=== PATIENT | male | born 1995 | race Caucasian/White ===

== ENCOUNTER 2017-11-11 13:03 | Emergency (ER) | payer BC, OTHER ==
[~2017-11-11] VITALS: Ht 177.8 cm; Wt 77.1 kg
[2017-11-11] MEDS ORDERED: ACETAMINOPHEN 500 MG TAB (TYLENOL) PO PRN (13:45)
--- NOTE | 2017-11-11 13:56 | ED Headache ---
General Chief Complaint: Head/Cervical Problems Stated Complaint: HEADACHE--HX OF BRAIN TUMOR PER PT Nursing Triage Note: pt reports freire for months. pt reports light makes the pain worse. pt also reports hx of beign brain tumor/cyst. Nursing Sepsis Screen: No Definite Risk Source: patient, other Exam Limitations: no limitations History of Present Illness Date Seen by Provider: Nov 11, 2017 Time Seen by Provider: 13:42 Initial Comments Patient presents to ER by private conveyance with a chief complaint of headache that is in bilateral parietal region constant, pressure about a 6 out of 10. 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 He did not have any biopsy or surgery of this and was told that this would not explain his headaches. He has not seen a headache specialist or neurologist since then. He is followed by Dr. Han in [place], [place] but he has not seen a doctor in over a year. He has typically used Tylenol, Excedrin and other NSAIDs without much relief of his headache so he has not use any of these pain meds for over a week now. He feels last weekend he was having some cough, congestion, chills and subjective fevers and his headache is gotten worse and is why he came in today. He is having no nausea, vomiting, documented fever. 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 Camacho and [place], [place] over a year ago. He thinks that the tumor on the side of his episcopalian is coming back. It is not painful and is recurring over a matter of months. Allergies and Home Medications Allergies Coded Allergies: No Known Drug Allergies (Unverified , 12/29/09) Home Medications No Active Prescriptions or Reported Meds Constitutional: chills, diaphoresis, fever, malaise Eyes: Denies Blindness, Denies Blurred Vision, Denies Pain, Photophobia Ears, Nose, Mouth, Throat: denies ear pain, denies ear discharge (ears feeling under water) Respiratory: cough, No phlegm, No short of breath, No wheezing Cardiovascular: No chest pain, No edema Gastrointestinal: No abdominal pain, No constipation, No diarrhea, No nausea, No vomiting Genitourinary: No discharge, No dysuria, No incontinence Musculoskeletal: No back pain, No joint pain Skin: No pruritus, No rash Psychiatric/Neurological: Headache, Denies Numbness, Denies Paresthesia Past Akmkqui-Asgwzz-Ndneqi Hx Patient Social History Alcohol Use: Occasionally Uses Recreational Drug Use: No Smoking Status: Never a Smoker Recent Foreign Travel: No Contact w/Someone Who Travel: No Recent Infectious Disease Expo: No Recent Hopitalizations: No Physical Abuse: No Sexual Abuse: No Mistreated: No Fear: No Seasonal Allergies Seasonal Allergies: No Surgeries History of Surgeries: Yes (tumor removed of l episcopalian) Respiratory History of Respiratory Disorde: No Cardiovascular History of Cardiac Disorders: No Neurological History of Neurological Disord: Yes (per pt hx of beign brain tumor) Genitourinary History of Genitourinary Disor: No Gastrointestinal History of Gastrointestinal Di: No Musculoskeletal History of Musculoskeletal Dis: No Endocrine History of Endocrine Disorders: No HEENT History of HEENT Disorders: No Cancer History of Cancer: No Psychosocial History of Psychiatric Problem: No Suicide Risk Score: 0 Integumentary History of Skin or Integumenta: No Blood Transfusions History of Blood Disorders: No Physical Exam Vital Signs Vital Sign - Last 12Hours 11/11/17 13:31 Temp 98.2 Pulse 80 Resp 18 B/P (MAP) 134/93 (107) Pulse Ox 97 Capillary Refill : Less Than 3 Seconds General Appearance: WD/WN, no apparent distress HEENT: PERRL/EOMI, normal ENT inspection, pharynx normal, TM abnormal (L) ( mild effusion and retraction without injection or erythema), other (small soft mobile nontender regular mass over the episcopalian where his eyeglasses frame rests with previous surgical scar seen.) Neck: non-tender, full range of motion, supple, normal inspection Cardiovascular: normal peripheral pulses, regular rate, rhythm, no edema Respiratory: chest non-tender, lungs clear, normal breath sounds Gastrointestinal: normal bowel sounds, non tender, soft Psychiatric: alert, oriented x 3 Crainal Nerves: normal hearing, normal speech, PERRL Coordination/Gait: normal finger to nose, normal gait, negative Romberg's sign Motor/Sensory: no motor deficit, no sensory deficit, no pronator drift Reflexes: 2+ Bicep (R), 2+ Bicep (L), 3+ Knee (R), 3+ Knee (L) Skin: normal color, warm/dry Lymphatic: no adenopathy (anterior or posterior cervical chains or postauricular) Progress/Results/Core Measures Results/Orders Micro Results Microbiology 11/11/17 Influenza Types A,B Antigen (SARAH) - Final, Complete My Orders Orders - BALJIT SAUCEDO Acetaminophen Tablet (Tylenol Tablet) (11/11/17 13:45) Influenza A And B Antigens (11/11/17 13:46) Ketorolac Injection (Toradol Injection) (11/11/17 14:00) Medications Given in ED Current Medications Medications Dose Ordered Sig/Geovanna Route Start Time Stop Time Status Last Admin Dose Admin Acetaminophen 1,000 mg ONCE PRN PO 11/11/17 13:45 11/11/17 14:03 DC 11/11/17 14:03 1,000 MG Ketorolac Tromethamine 30 mg ONCE ONCE IM 11/11/17 14:00 11/11/17 14:01 DC 11/11/17 14:03 30 MG Vital Signs/I&O Vital Sign - Last 12Hours 11/11/17 13:31 Temp 98.2 Pulse 80 Resp 18 B/P (MAP) 134/93 (107) Pulse Ox 97 Blood Pressure Mean: 107 Progress Note : Time: 13:54 Progress Note 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 Han will have records of what was done in the past and may possibly need a outpatient ultrasound if it is concerning and may also need removed. I have advised him not to put this off for more than 2-4 weeks. His headache does not appear to be migrainous and may be related to his otitis media effusion. We'll recommend NSAID treatment as well as Tylenol, fluids and Flonase. If his headaches persist she should follow-up with his primary care physician for referral to neurology or headache specialist. Departure Impression Impression: Primary Impression: Left otitis media with effusion Additional Impressions: Headache Qualified Codes: R51 - Headache Lipoma Qualified Codes: D17.0 - Benign lipomatous neoplasm of skin and subcutaneous tissue of head, face and neck Disposition: 01 HOME, SELF-CARE Condition: Stable Departure-Patient Inst. Decision time for Depature: 14:13 Referrals: KARON MCLEAN MD (PCP/Family) Primary Care Physician Patient Instructions: Headache, Adult (DC) Add. Discharge Instructions: Drink plenty of fluids and use Tylenol 1000 mg followed by Motrin 800 mg every 8 hours as needed. Follow up with your primary care physician for headache management. 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 Is also reasonable use an antiallergy medicine such as Zyrtec or Claritin one tablet daily for the next 2 weeks. Plan to follow up with your primary care physician or the surgeon who took the tumor off the side of your head to follow up this recurrence. All discharge instructions reviewed with patient and/or family. Voiced understanding. Scripts No Active Prescriptions or Reported Meds BALJIT SAUCEDO Nov 11, 2017 13:55
[2017-11-11] MEDS ORDERED: KETOROLAC 30 MG/ML VIAL IM ONE (14:00)
[2017-11-11 14:30] VITALS: BP 123/87
--- OUTSIDE RECORDS SUMMARY | 2017-11-15 04:53 | XMS REPORT ---
Author [facility] Medical Staff Organization [facility] Address [address] [place] [id number] Phone [phone] Care Team Providers Care Control Room Tender Name Role Phone KARON MCLEAN MD PP [phone] Summary purpose TRANSITION OF CARE AUTO GENERATION Chief Complaint and Reason for Visit No authorized Reason for Visit (Admitting Diagnosis) is available for this visit. Problem list No authorized problems tracked for continuity of care are available for this visit. Encounters No authorized problems tracked for encounter diagnoses are available for this visit. Medications No medications recorded for this patient visit Allergies, adverse reactions, alerts Allergen Category Ingredient Status Reaction Severity Onset No known drug allergies No known drug allergies No known drug allergies Confirmed or Verified Immunizations No immunizations recorded for this patient visit Relevant diagnostic tests and/or laboratory data No authorized results are available for this patient visit History of procedures No procedures recorded for this patient visit. Functional status No functional or cognitive status observations are available for this visit. Vital signs No authorized vital signs are available for this visit. Social history No Social History or smoking status observations were recorded for this visit. ( Unknown if ever smoked.) Treatment Plan No treatment plan text is available for this visit. Hospital discharge instructions No discharge instruction text is available for this visit.
--- OUTSIDE RECORDS SUMMARY | 2017-11-15 04:54 | XMS REPORT | Clinical Summary ---
Author Author Admin, JULIO Organization [facility] Address Unknown Phone Unavailable Allergies, Adverse Reactions, Alerts Allergy Name Reaction Description Start Date Severity Status Provider NKDA Critical No Longer Active Jose David Palmer MD WHEAT Shortness of Breath Moderate Active Jose David Palmer MD NKDA Critical Inactive Zohra Bruce Conditions or Problems Problem Name Problem Code Onset Date Status Entry Date Provider Comment Standard Description Annotate SHOULDER STRAIN, LEFT 840.9 Inactive Jose David Palmer MD Sprain of unspecified site of shoulder and upper arm INGROWN TOENAIL 703.0 Resolved Gisela Bass APRN Ingrowing nail PHARYNGITIS-ACUTE 462 Resolved Gisela Bass APRN Acute pharyngitis ACUTE BRONCHITIS 466.0 Active Gisela Bass APRN Acute bronchitis WHEEZING 786.07 Active Gisela Bass APRN Wheezing Ingrown toenail, infected 703.0 Active Skyler FRENCH Ingrowing nail 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 Active Jose David Palmer MD Lymphangioma, any site Family History of Alcoholism V61.41 Active Pool Toledo MD Alcoholism in family SHOULDER STRAIN, LEFT ICD-840.9 Inactive Jose David Palmer MD INGROWN TOENAIL ICD-703.0 Inactive Gisela Bass APRN PHARYNGITIS-ACUTE ICD-462 Inactive Gisela Bass APRN Medication List Medication Instructions Start Date Stop Date Generic Name NDC Status Provider Patient Instruction TRAMADOL HCL 50 MG TABS 2 tabs PO q 6 hrs PRN pain TRAMADOL HCL 32772380546 No Longer Active Jose David Palmer MD Active BACTRIM DS 800-160 MG TABS 1 PO bid x 10 days SULFAMETHOXAZOLE-TRIMETHOPRIM 73316274912 No Longer Active Jose David Palmer MD Active VENTOLIN HFA 108 (90 BASE) MCG/ACT AERS 2 puffs four times a day PRN ALBUTEROL SULFATE 95308430147 Active Jose David Palmer MD Active ZITHROMAX 250 MG TAB 2 po today, then 1 po q days 2-5 AZITHROMYCIN 37915175952 No Longer Active Gisela Bass APRN Active ZITHROMAX 250 MG TAB 2 po today, then 1 po q days 2-5 AZITHROMYCIN 98542426886 No Longer Active Savage Harrison MD Active BACTRIM DS 800-160 MG TABS 1 PO bid x 10 days BACTRIM DS 800-160 MG TABS SULFAMETHOXAZOLE-TRIMETHOPRIM Inactive TRAMADOL HCL 50 MG TABS 2 tabs PO q 6 hrs PRN pain TRAMADOL HCL 50 MG TABS 119851 TRAMADOL HCL Inactive ZITHROMAX 250 MG TAB 2 po today, then 1 po q days 2-5 ZITHROMAX 250 MG TAB 6026044 AZITHROMYCIN Inactive ZITHROMAX 250 MG TAB 2 po today, then 1 po q days 2-5 ZITHROMAX 250 MG TAB 0204937 AZITHROMYCIN Inactive Advance Directives Directive Description Start Date PERMISSION TO SHARE Immunizations Vaccine Administration Date Value Standard Description Boostrix (Tetanus toxoid, reduced diphtheria toxoid and acellular pertussis vaccine, adsorbed), booster Boostrix [[id number]] tetanus toxoid, reduced diphtheria toxoid, and acellular pertussis vaccine, adsorbed DPT immunization #5 DTaP oral polio vaccine (OPV) #4 IPV poliovirus vaccine, unspecified formulation MMR (measles, mumps, rubella) virus immunization #2 MMR DPT immunization #4 DPT Hemophilus influenza B immunization #4 Historical Haemophilus influenzae type b vaccine, conjugate unspecified formulation MMR (measles, mumps, rubella) virus immunization #1 MMR hepatitis B vaccine #3 Historical hepatitis B vaccine, unspecified formulation DPT immunization #3 DPT Hemophilus influenza B immunization #3 Historical Haemophilus influenzae type b vaccine, conjugate unspecified formulation oral polio vaccine (OPV) #3 Historical poliovirus vaccine, unspecified formulation DPT immunization #2 DPT Hemophilus influenza B immunization #2 Historical Haemophilus influenzae type b vaccine, conjugate unspecified formulation oral polio vaccine (OPV) #2 Historical poliovirus vaccine, unspecified formulation hepatitis B vaccine #2 given Historical hepatitis B vaccine, unspecified formulation DPT immunization #1 DPT Hemophilus influenza B immunization #1 Historical Haemophilus influenzae type b vaccine, conjugate unspecified formulation oral polio vaccine (OPV) #1 Historical poliovirus vaccine, unspecified formulation hepatitis B vaccine #1 given Historical hepatitis B vaccine, unspecified formulation Vital Signs Date Name Value Unit Range Description blood pressure, diastolic - 8462-4 75 mm[Hg] BP mercedes blood pressure, systolic - 8480-6 123 mm[Hg] BP sys pulse rate E&M - 8867-4 92 /min Heart rate temperature E&M 98.1 [degF] Body temperature weight E&M - 3141-9 193 [lb_av] Weight Measured blood pressure, diastolic - 8462-4 71 mm[Hg] BP mercedes blood pressure, systolic - 8480-6 111 mm[Hg] BP sys pulse rate E&M - 8867-4 71 /min Heart rate temperature E&M 98.6 [degF] Body temperature weight E&M - 3141-9 195.4 [lb_av] Weight Measured blood pressure, diastolic - 8462-4 75 mm[Hg] BP mercedes blood pressure, systolic - 8480-6 136 mm[Hg] BP sys pulse rate E&M - 8867-4 80 /min Heart rate temperature E&M 98.6 [degF] Body temperature weight E&M - 3141-9 193 [lb_av] Weight Measured blood pressure, diastolic - 8462-4 67 mm[Hg] BP mercedes blood pressure, systolic - 8480-6 103 mm[Hg] BP sys pulse rate E&M - 8867-4 67 /min Heart rate temperature E&M 98.9 [degF] Body temperature weight E&M - 3141-9 195.9 [lb_av] Weight Measured Encounters Code Encounter Date Provider Facility CPT-85607 Level 3 Est. Patient 16:33:42 CDT Jose David Palmer MD [facility] CPT-06269 Level 3 Est. Patient 15:59:53 CDT Skyler FRENCH [facility] CPT-86542 Level 3 Est. Patient 16:27:29 CDT Gisela Bass APRN [facility] CPT-75423 Level 3 Est. Patient 17:36:57 CDT Savage Harrison MD [facility] CPT-19813 Level 2 Est. Patient 12:39:59 CDT Jose David Palmer MD [facility] CPT-68616 Level 3 Est. Patient 19:50:05 CDT Jose David Palmer MD [facility] Procedures Code Procedure Name Date Entry Date Standard Description CPT-OV Office Visit 16:13:25 CDT CPT-60623 Nail Excision 17:28:40 CDT CPT-76487 Nail Excision 12:39:59 CDT CPT-16916 Administration single or combination vaccine inc oral 21 :01:45 RN [facility] CPT-18455 Tdap 21:01:45 RN [facility] CPT-15335 Nail Avulsion 12:16:22 RN [facility]
--- OUTSIDE RECORDS SUMMARY | 2017-11-15 04:54 | XMS REPORT | Clinical Summary ---
Author Author Admin, JULIO Organization [facility] Address Unknown Phone Unavailable Allergies, Adverse Reactions, [...] q 6 hrs PRN pain TRAMADOL HCL 33733745612 No Longer Active Jose David Palmer MD Active BACTRIM DS 800-160 MG TABS 1 PO bid x 10 days SULFAMETHOXAZOLE-TRIMETHOPRIM 90070948727 No Longer Active Jose David Palmer MD Active VENTOLIN HFA 108 (90 BASE) MCG/ACT AERS 2 puffs four times a day PRN ALBUTEROL SULFATE 62784017344 Active Jose David Palmer MD Active ZITHROMAX 250 MG TAB 2 po today, then 1 po q days 2-5 AZITHROMYCIN 34135562261 No Longer Active Gisela Bass APRN Active ZITHROMAX 250 MG TAB 2 po today, then 1 po q days 2-5 AZITHROMYCIN 05597420311 No Longer Active Savage Harrison MD Active BACTRIM DS 800-160 MG TABS 1 PO bid x 10 days BACTRIM DS 800-160 MG TABS SULFAMETHOXAZOLE-TRIMETHOPRIM Inactive TRAMADOL HCL 50 MG TABS 2 tabs PO q 6 hrs PRN pain TRAMADOL HCL 50 MG TABS 053192 TRAMADOL HCL Inactive ZITHROMAX 250 MG TAB 2 po today, then 1 po q days 2-5 ZITHROMAX 250 MG TAB 7652434 AZITHROMYCIN Inactive ZITHROMAX 250 MG TAB 2 po today, then 1 po q days 2-5 ZITHROMAX 250 MG TAB 2850862 AZITHROMYCIN Inactive Advance Directives Directive Description Start Date PERMISSION TO SHARE Immunizations Vaccine Administration Date Value Standard Description Boostrix (Tetanus toxoid, reduced diphtheria toxoid and acellular pertussis vaccine, adsorbed), booster Boostrix [[id number]] tetanus toxoid, reduced diphtheria toxoid, and acellular [...] E&M - 3141-9 193 [lb_av] Weight Measured Encounters Code Encounter Date Provider Facility CPT-04623 Level 3 Est. Patient 16:33:42 CDT Jose David Palmer MD [facility] CPT-57714 Level 3 Est. Patient 15:59:53 CDT Skyler FRENCH [facility] CPT-70968 Level 3 Est. Patient 16:27:29 CDT Gisela Bass APRN [facility] CPT-40681 Level 3 Est. Patient 17:36:57 CDT Savage Harrison MD [facility] CPT-08023 Level 2 Est. Patient 12:39:59 CDT Jose David Palmer MD [facility] CPT-90593 Level 3 Est. Patient 19:50:05 CDT Jose David Palmer MD [facility] Procedures Code Procedure Name Date Entry Date Standard Description CPT-OV Office Visit 16:13:25 CDT CPT-27881 Nail Excision 17:28:40 CDT CPT-70566 Nail Excision 12:39:59 CDT CPT-50274 Administration single or combination vaccine inc oral 21 :01:45 NET REPAIRER CPT-67440 Tdap 21:01:45 NET REPAIRER CPT-59967 Nail Avulsion 12:16:22 NET REPAIRER
--- OUTSIDE RECORDS SUMMARY | 2017-11-15 04:54 | XMS REPORT | Clinical Summary ---
Author Author Admin, JULIO Son [facility] Address Unknown Phone Unavailable Allergies, Adverse Reactions, Alerts Allergy Name Reaction Description Start Date Severity Status Provider No Known Allergies Sonam Perez RN Conditions or Problems Problem Name Problem Code [...] infected 703.0 Active Skyler FRENCH Ingrowing nail SHOULDER STRAIN, LEFT ICD-840.9 Inactive Jose David Palmer MD INGROWN TOENAIL ICD-703.0 Inactive Gisela Bass MOLTEN IRON POURER PHARYNGITIS-ACUTE ICD-462 Inactive Gisela Bass APRN Medication List Medication Instructions Start Date Stop Date Generic Name [facility] Status Provider Patient Instruction TRAMADOL HCL 50 MG TABS 2 tabs PO q 6 hrs PRN pain TRAMADOL HCL 22966673568 Active Jose David Palmer MD Active BACTRIM DS 800-160 MG TABS 1 PO bid x 10 days SULFAMETHOXAZOLE -TRIMETHOPRIM 28480731328 Active Skyler FRENCH Active VENTOLIN HFA 108 (90 BASE) MCG/ACT AERS 2 puffs four times a day PRN ALBUTEROL SULFATE 90339406606 Active Gisela Bass APRN Active ZITHROMAX 250 MG TAB 2 po today, then 1 po q days 2-5 AZITHROMYCIN 68918660882 No Longer Active Gisela Bass APRN Active ZITHROMAX 250 MG TAB 2 po today, then 1 po q days 2-5 AZITHROMYCIN 98489124437 No Longer Active Savage Harrison MD Active ZITHROMAX 250 MG TAB 2 po today, then 1 po q days 2-5 ZITHROMAX 250 MG TAB 2702729 AZITHROMYCIN Inactive ZITHROMAX 250 MG TAB 2 po today, then 1 po q days 2-5 ZITHROMAX 250 MG TAB 2582872 AZITHROMYCIN Inactive Immunizations Vaccine Administration Date Value Standard Description Boostrix (Tetanus toxoid, reduced diphtheria toxoid and acellular pertussis vaccine, adsorbed), booster Boostrix [[id number]] tetanus toxoid, reduced diphtheria toxoid, and acellular [...] Measured Encounters Code Encounter Date Provider Facility CPT-68990 Level 3 Est. Patient 15:59:53 CDT Skyler FRENCH [facility] CPT-91725 Level 3 Est. Patient 16:27:29 CDT Gisela Bass APRN [facility] CPT-48994 Level 3 Est. Patient 17:36:57 CDT Savage Harrison MD [facility] CPT-42919 Level 2 Est. Patient 12:39:59 CDT Jose David Palmer MD [facility] CPT-19192 Level 3 Est. Patient 19:50:05 CDT Jose David Palmer MD [facility] Procedures Code Procedure Name Date Entry Date Standard Description CPT-70558 Nail Excision 17:28:40 CDT CPT-52571 Nail Excision 12:39:59 CDT CPT-39884 Administration single or combination vaccine inc oral 21 :01:45 TRAVELING STOREKEEPER CPT-11590 Tdap 21:01:45 TRAVELING STOREKEEPER CPT-80504 Nail Avulsion 12:16:22 TRAVELING STOREKEEPER
--- OUTSIDE RECORDS SUMMARY | 2017-11-15 04:54 | XMS REPORT | Clinical Summary ---
Author Author Admin, JULIO Son [facility] Address Unknown Phone Unavailable Allergies, [...] Jose David Palmer MD Lymphangioma, any site SHOULDER STRAIN, LEFT ICD-840.9 Inactive Jose David Palemr MD INGROWN TOENAIL ICD-703.0 Inactive Gisela Bass APRN PHARYNGITIS-ACUTE ICD-462 Inactive Gisela Bass APRN Medication List Medication Instructions Start Date Stop Date Generic Name NDC Status Provider Patient Instruction TRAMADOL HCL 50 MG TABS 2 tabs PO q 6 hrs PRN pain TRAMADOL HCL 86841810312 No Longer Active Jose David Palmer MD Active BACTRIM DS 800-160 MG TABS 1 PO bid x 10 days SULFAMETHOXAZOLE-TRIMETHOPRIM 03111654475 No Longer Active Jose David Palmer MD Active VENTOLIN HFA 108 (90 BASE) MCG/ACT AERS 2 puffs four times a day PRN ALBUTEROL SULFATE 97389980700 Active Gisela Bass APRN Active ZITHROMAX 250 MG TAB 2 po today, then 1 po q days 2-5 AZITHROMYCIN 92363678541 No Longer Active Gisela Bass APRN Active ZITHROMAX 250 MG TAB 2 po today, then 1 po q days 2-5 AZITHROMYCIN 86592518284 No Longer Active Savage Harrison MD Active BACTRIM DS 800-160 MG TABS 1 PO bid x 10 days BACTRIM DS 800-160 MG TABS SULFAMETHOXAZOLE-TRIMETHOPRIM Inactive TRAMADOL HCL 50 MG TABS 2 tabs PO q 6 hrs PRN pain TRAMADOL HCL 50 MG TABS 898917 TRAMADOL HCL Inactive ZITHROMAX 250 MG TAB 2 po today, then 1 po q days 2-5 ZITHROMAX 250 MG TAB 2063220 AZITHROMYCIN Inactive ZITHROMAX 250 MG TAB 2 po today, then 1 po q days 2-5 ZITHROMAX 250 MG TAB 9966992 AZITHROMYCIN Inactive Immunizations Vaccine Administration Date Value Standard Description Boostrix (Tetanus toxoid, reduced diphtheria toxoid and acellular pertussis vaccine, adsorbed), booster Boostrix [[id number]] tetanus toxoid, reduced diphtheria toxoid, and acellular [...] Measured Encounters Code Encounter Date Provider Facility CPT-30470 Level 3 Est. Patient 16:33:42 CDT Jose David Palmer MD [facility] CPT-52269 Level 3 Est. Patient 15:59:53 CDT Skyler FRENCH [facility] CPT-26035 Level 3 Est. Patient 16:27:29 CDT Gisela Bass APRN [facility] CPT-86855 Level 3 Est. Patient 17:36:57 CDT Savage Harrison MD [facility] CPT-98846 Level 2 Est. Patient 12:39:59 CDT Jose David Palmer MD [facility] CPT-42132 Level 3 Est. Patient 19:50:05 CDT Jose David Palmer MD [facility] Procedures Code Procedure Name Date Entry Date Standard Description CPT-00816 Nail Excision 17:28:40 CDT CPT-86596 Nail Excision 12:39:59 CDT CPT-72290 Administration single or combination vaccine inc oral 21 :01:45 FINISHED CARPET INSPECTOR CPT-69805 Tdap 21:01:45 FINISHED CARPET INSPECTOR CPT-02706 Nail Avulsion 12:16:22 FINISHED CARPET INSPECTOR
--- OUTSIDE RECORDS SUMMARY | 2017-11-15 04:54 | XMS REPORT ---
Author Author [facility] Medical Staff Organization [facility] Address [address], [place] [address] Phone [phone] Summary purpose CCDA Sent to [facility] Chief Complaint and Reason for Visit Admit Diagnosis 1 ASTHMA, UNSPECIFIED Problem list No authorized problems tracked for continuity of care are available for this visit. Encounters No authorized problems tracked for encounter diagnoses are available for this visit. Medications No home medications recorded for this patient visit Allergies, adverse reactions, alerts No allergy information is available for this patient. Immunizations No immunizations recorded for this patient visit Relevant diagnostic tests and/or laboratory data No authorized results are available for this patient visit History of procedures Procedure Code Code Type Description Date Performed Performing Physician [id number] CPT-4 OFFICE/OUTPATIENT VISIT NEW 04-12-2015 KANDICE KAPOOR J2930 CPT-4 METHYLPREDNISOLONE INJECTION 04-12-2015 KANDICE KAPOOR 98047 CPT-4 THER/PROPH/DIAG INJ SC/IM 04-12-2015 KANDICE KAPOOR Functional status No functional or cognitive status [...]
--- OUTSIDE RECORDS SUMMARY | 2017-11-15 04:54 | XMS REPORT ---
Author Author [facility] Medical Staff Organization [facility] Address [address] [place] [address] Phone [phone] Care Team Providers Care Brush Polisher Name Role Phone KARON MCLEAN MD PP [phone] Summary purpose TRANSITION OF CARE AUTO GENERATION Chief Complaint and Reason for Visit Admit Diagnosis 1 HEADACHE Problem list No authorized problems tracked for [...] Code Type Description Date Performed Performing Physician [id number] CPT-4 PREDNISONE ORAL 03-24-2015 GENOVEVA SHELIA 39325 CPT-4 EMERGENCY DEPT VISIT 03-24-2015 GENOVEVA SHELIA 53107 CPT-4 EMERGENCY DEPT VISIT 03-24-2015 GENOVEVA BASS Functional status Functional Status Finding Observation Time Diet regular 63-29-089656:50 Abdomen Appearance flat 01-76-739656:50 Abdomen soft :50 Bowel Sounds present 13-04-793638:50 Quality sym/unlabored 31-45-056066:50 Cough absent 46-55-227298:50 Breath Sounds RUL clear :50 Breath Sounds RML clear :50 Breath Sounds RLL clear :50 Breath Sounds GELY clear :50 Breath Sounds LLL clear :50 Chest Tube no :50 Oxygen no 95-05-554539:10 Temp >100.4 no :50 Temp <96.8 no 41-18-960074:50 Chills with rigors no 32-22-030697:50 HR > 90bpm no 64-06-998583:50 Respirations > 20 no 55-87-282929:50 Systolic <90 no 91-74-706221:50 Nursing Note dc inst discussed with pt.dcd to home with script in good condition :10 Vital signs Type Value Date Respiration Rate 16breaths per minute :10 Pulse 70beats per minute :10 Oxygen Saturation 100% 31-92-122451:10 BP Systolic 118mmHg :10 BP Diastolic 55mmHg 00-09-343862:10 Temperature 98.1F 06-21-107455:10 Social history Type Value Smoking Status NEVER SMOKER Treatment Plan No treatment plan text is available for this visit. Hospital discharge instructions Dismissal Condition good Disposition on DC home DC Inst/Educ Give yes Med/Side Effects Rev yes Flu Vac none
--- OUTSIDE RECORDS SUMMARY | 2017-11-15 04:54 | XMS REPORT | Clinical Summary ---
Author Author Admin, JULIO Organization [employer] Address Unknown Phone Unavailable Allergies, Adverse Reactions, Alerts Allergy Name Reaction Description Start Date Severity Status Provider NKDA Critical No Longer Active Jose David Palmer MD WHEAT Shortness of Breath Moderate Active Jose David Palmer MD NKDA Critical Inactive Zohra Teo Conditions or Problems Problem Name Problem Code Onset Date Status Entry Date Provider Comment Standard Description Annotate SHOULDER STRAIN, LEFT 840.9 Inactive Jose David Palmer MD Sprain of unspecified site of shoulder and upper arm INGROWN TOENAIL 703.0 Resolved Gisela Bass APRN Ingrowing nail PHARYNGITIS-ACUTE 462 Resolved Gisela Bass APRN Acute pharyngitis ACUTE BRONCHITIS 466.0 Resolved Jose David Palmer MD Acute bronchitis WHEEZING 786.07 Resolved Jose David Palmer MD Wheezing Ingrown toenail, infected 703.0 Active Skyler FRENCH Ingrowing nail 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 Active Jose David Palmer MD Lymphangioma, any site Family History of Alcoholism V61.41 Active Pool Toledo MD Alcoholism in family Generalized anxiety disorder 300.02 Active Jose David Palmer MD Generalized anxiety disorder 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 Cerebral cysts 348.0 Active Jose David Palmer MD Cerebral cysts SHOULDER STRAIN, LEFT ICD-840.9 Inactive Jose David Palmer MD INGROWN TOENAIL ICD-703.0 Inactive Gisela Bass BARREL MAKER PHARYNGITIS-ACUTE ICD-462 Inactive Gisela Bass BARREL MAKER ACUTE BRONCHITIS ICD-466.0 Inactive Jose David Palmer MD WHEEZING ICD-786.07 Inactive Jose David Palmer MD Medication List Medication Instructions Start Date Stop Date Generic Name NDC Status Provider Patient Instruction ALPRAZOLAM 0.25 MG TABS 1/2 to 1 twice a day as needed for anxiety ALPRAZOLAM 80716541446 Active Jose David Palmer MD Active PAROXETINE HCL 20 MG TABS 1 daily for depression/anxiety PAROXETINE HCL 56698490544 Active Jose David Palmer MD Active TRAMADOL HCL 50 MG TABS 2 tabs PO q 6 hrs PRN pain TRAMADOL HCL 48880135193 No Longer Active Jose David Palmer MD Active BACTRIM DS 800-160 MG TABS 1 PO bid x 10 days SULFAMETHOXAZOLE-TRIMETHOPRIM 40563490040 No Longer Active Jose David Palmer MD Active VENTOLIN HFA 108 (90 BASE) MCG/ACT AERS 2 puffs four times a day PRN ALBUTEROL SULFATE 17759145169 Active Jose David Palmer MD Active ZITHROMAX 250 MG TAB 2 po today, then 1 po q days 2-5 AZITHROMYCIN 61338189429 No Longer Active Gisela Bass BARREL MAKER Active ZITHROMAX 250 MG TAB 2 po today, then 1 po q days 2-5 AZITHROMYCIN 68956028214 No Longer Active Savage Harrison MD Active BACTRIM DS 800-160 MG TABS 1 PO bid x 10 days BACTRIM DS 800-160 MG TABS 760332 SULFAMETHOXAZOLE-TRIMETHOPRIM Inactive TRAMADOL HCL 50 MG TABS 2 tabs PO q 6 hrs PRN pain TRAMADOL HCL 50 MG TABS 639734 TRAMADOL HCL Inactive ZITHROMAX 250 MG TAB 2 po today, then 1 po q days 2-5 ZITHROMAX 250 MG TAB 7302589 AZITHROMYCIN Inactive ZITHROMAX 250 MG TAB 2 po today, then 1 po q days 2-5 ZITHROMAX 250 MG TAB 9131824 AZITHROMYCIN Inactive Advance Directives Directive Description Start Date PERMISSION TO SHARE Immunizations Vaccine Administration Date Value Standard Description Boostrix (Tetanus toxoid, reduced diphtheria toxoid and acellular pertussis vaccine, adsorbed), booster Boostrix [[id number]] tetanus toxoid, reduced diphtheria toxoid, and acellular [...] Range Description blood pressure, diastolic - 8462-4 70 mm[Hg] BP mercedes blood pressure, systolic - 8480-6 124 mm[Hg] BP sys pulse rate E&M - 8867-4 69 /min Heart rate temperature E&M 98.1 [degF] Body temperature weight E&M - 3141-9 193.4 [lb_av] Weight Measured Encounters Code Encounter Date Provider Facility CPT-98574 Level 4 Est. Patient 10:40:46 CDT Jose David Palmer MD [facility] CPT-47215 Level 3 Est. Patient 16:33:42 CDT Jose David Palmer MD [facility] CPT-17710 Level 3 Est. Patient 15:59:53 CDT Skyler FRENCH [facility] CPT-13201 Level 3 Est. Patient 16:27:29 CDT Gisela Bass APRN [facility] CPT-49608 Level 3 Est. Patient 17:36:57 CDT Savage Harrison MD [facility] CPT-01789 Level 2 Est. Patient 12:39:59 CDT Jose David Palmer MD [facility] CPT-04699 Level 3 Est. Patient 19:50:05 CDT Jose David Palmer MD [facility] Procedures Code Procedure Name Date Entry Date Standard Description CPT-OV Office Visit 16:13:25 CDT CPT-27629 Nail Excision 17:28:40 CDT CPT-20532 Nail Excision 12:39:59 CDT CPT-84959 Administration single or combination vaccine inc oral 21 :01:45 SHOTBLAST EQUIPMENT OPERATOR CPT-49279 Tdap 21:01:45 SHOTBLAST EQUIPMENT OPERATOR CPT-24718 Nail Avulsion 12:16:22 SHOTBLAST EQUIPMENT OPERATOR
--- OUTSIDE RECORDS SUMMARY | 2017-11-15 04:55 | XMS REPORT | Clinical Summary ---
Author Author Admin, JULIO Organization [employer] Address Unknown Phone Unavailable Allergies, Adverse Reactions, [...] MD INGROWN TOENAIL ICD-703.0 Inactive Gisela Bass BLACK ASH BURNER OPERATOR PHARYNGITIS-ACUTE ICD-462 Inactive Gisela Bass BLACK ASH BURNER OPERATOR ACUTE BRONCHITIS ICD-466.0 Inactive Jose David Palmer MD WHEEZING ICD-786.07 Inactive Jose David Palmer MD Medication List Medication Instructions Start Date Stop Date Generic Name NDC Status Provider Patient Instruction ALPRAZOLAM 0.25 MG TABS 1/2 to 1 twice a day as needed for anxiety ALPRAZOLAM 87352513282 Active Jose David Palmer MD Active PAROXETINE HCL 20 MG TABS 1 daily for depression/anxiety PAROXETINE HCL 76831932520 Active Jose David Palmer MD Active TRAMADOL HCL 50 MG TABS 2 tabs PO q 6 hrs PRN pain TRAMADOL HCL 54746803281 No Longer Active Jose David Palmer MD Active BACTRIM DS 800-160 MG TABS 1 PO bid x 10 days SULFAMETHOXAZOLE-TRIMETHOPRIM 53774269272 No Longer Active Jose David Palmer MD Active VENTOLIN HFA 108 (90 BASE) MCG/ACT AERS 2 puffs four times a day PRN ALBUTEROL SULFATE 18245999855 Active Jose David Palmer MD Active ZITHROMAX 250 MG TAB 2 po today, then 1 po q days 2-5 AZITHROMYCIN 74838544991 No Longer Active Gisela Bass BLACK ASH BURNER OPERATOR Active ZITHROMAX 250 MG TAB 2 po today, then 1 po q days 2-5 AZITHROMYCIN 09578229043 No Longer Active Savage Harrison MD Active BACTRIM DS 800-160 MG TABS 1 PO bid x 10 days BACTRIM DS 800-160 MG TABS 966388 SULFAMETHOXAZOLE-TRIMETHOPRIM Inactive TRAMADOL HCL 50 MG TABS 2 tabs PO q 6 hrs PRN pain TRAMADOL HCL 50 MG TABS 860216 TRAMADOL HCL Inactive ZITHROMAX 250 MG TAB 2 po today, then 1 po q days 2-5 ZITHROMAX 250 MG TAB 8449992 AZITHROMYCIN Inactive ZITHROMAX 250 MG TAB 2 po today, then 1 po q days 2-5 ZITHROMAX 250 MG TAB 6007420 AZITHROMYCIN Inactive Advance Directives Directive Description Start Date PERMISSION TO SHARE Immunizations Vaccine Administration Date Value Standard Description Boostrix (Tetanus toxoid, reduced diphtheria toxoid and acellular pertussis vaccine, adsorbed), booster Boostrix [[id number]] tetanus toxoid, reduced diphtheria toxoid, and acellular [...] Measured Encounters Code Encounter Date Provider Facility CPT-90148 Level 4 Est. Patient 10:40:46 CDT Jose David Palmer MD [facility] CPT-00059 Level 3 Est. Patient 16:33:42 CDT Jose David Palmer MD [facility] CPT-63262 Level 3 Est. Patient 15:59:53 CDT Skyler FRENCH [facility] CPT-64949 Level 3 Est. Patient 16:27:29 CDT Gisela Bass APRN [facility] CPT-41856 Level 3 Est. Patient 17:36:57 CDT Savage Harrison MD [facility] CPT-61213 Level 2 Est. Patient 12:39:59 CDT Jose David Palmer MD [facility] CPT-65056 Level 3 Est. Patient 19:50:05 CDT Jose David Palmer MD [facility] Procedures Code Procedure Name Date Entry Date Standard Description CPT-OV Office Visit 16:13:25 CDT CPT-76062 Nail Excision 17:28:40 CDT CPT-44329 Nail Excision 12:39:59 CDT CPT-22438 Administration single or combination vaccine inc oral 21 :01:45 BOILING HOUSE OILER CPT-91050 Tdap 21:01:45 BOILING HOUSE OILER CPT-53350 Nail Avulsion 12:16:22 BOILING HOUSE OILER
--- OUTSIDE RECORDS SUMMARY | 2017-11-15 04:55 | XMS REPORT | Clinical Summary ---
Author Author Admin, JULIO Organization [facility] Address Unknown Phone Unavailable Allergies, Adverse Reactions, Alerts Allergy Name Reaction Description Start Date Severity Status Provider NKDA Critical Active Pool Toledo MD Conditions or Problems Problem Name Problem Code [...] q 6 hrs PRN pain TRAMADOL HCL 38484590125 No Longer Active Jose David Palmer MD Active BACTRIM DS 800-160 MG TABS 1 PO bid x 10 days SULFAMETHOXAZOLE-TRIMETHOPRIM 54010858116 No Longer Active Jose David Palmer MD Active VENTOLIN HFA 108 (90 BASE) MCG/ACT AERS 2 puffs four times a day PRN ALBUTEROL SULFATE 18849687451 Active Gisela Bass APRN Active ZITHROMAX 250 MG TAB 2 po today, then 1 po q days 2-5 AZITHROMYCIN 74243403323 No Longer Active Gisela Bass APRN Active ZITHROMAX 250 MG TAB 2 po today, then 1 po q days 2-5 AZITHROMYCIN 46463182819 No Longer Active Savage Harrison MD Active BACTRIM DS 800-160 MG TABS 1 PO bid x 10 days BACTRIM DS 800-160 MG TABS SULFAMETHOXAZOLE-TRIMETHOPRIM Inactive TRAMADOL HCL 50 MG TABS 2 tabs PO q 6 hrs PRN pain TRAMADOL HCL 50 MG TABS 430438 TRAMADOL HCL Inactive ZITHROMAX 250 MG TAB 2 po today, then 1 po q days 2-5 ZITHROMAX 250 MG TAB 0465185 AZITHROMYCIN Inactive ZITHROMAX 250 MG TAB 2 po today, then 1 po q days 2-5 ZITHROMAX 250 MG TAB 2782546 AZITHROMYCIN Inactive Advance Directives Directive Description Start Date PERMISSION TO SHARE Immunizations Vaccine Administration Date Value Standard Description Boostrix (Tetanus toxoid, reduced diphtheria toxoid and acellular pertussis vaccine, adsorbed), booster Boostrix [[id number]] tetanus toxoid, reduced diphtheria toxoid, and acellular [...] Measured Encounters Code Encounter Date Provider Facility CPT-83253 Level 3 Est. Patient 16:33:42 CDT Jose David Palmer MD [facility] CPT-30284 Level 3 Est. Patient 15:59:53 CDT Skyler FRENCH [facility] CPT-82961 Level 3 Est. Patient 16:27:29 CDT Gisela Bass APRN [facility] CPT-31665 Level 3 Est. Patient 17:36:57 CDT Savage Harrison MD [facility] CPT-22059 Level 2 Est. Patient 12:39:59 CDT Jose David Palmer MD [facility] CPT-82972 Level 3 Est. Patient 19:50:05 CDT Jose David Palmer MD [facility] Procedures Code Procedure Name Date Entry Date Standard Description CPT-OV Office Visit 16:13:25 CDT CPT-87091 Nail Excision 17:28:40 CDT CPT-76979 Nail Excision 12:39:59 CDT CPT-14571 Administration single or combination vaccine inc oral 21 :01:45 DIVINITY PROFESSOR CPT-38784 Tdap 21:01:45 DIVINITY PROFESSOR CPT-59211 Nail Avulsion 12:16:22 DIVINITY PROFESSOR
--- OUTSIDE RECORDS SUMMARY | 2017-11-15 04:55 | XMS REPORT ---
Author Author [facility] Medical Staff Organization [facility] Address [address], [place] [address] Phone [phone] Care Team Providers Care Concession Supervisor Name Role Phone KARON MCLEAN MD PP [phone] Summary purpose TRANSITION OF CARE AUTO GENERATION Chief Complaint and Reason for Visit Admit Diagnosis 1 TRAUM FX AFTERCARE NEC Problem list No authorized problems tracked for [...] visit Relevant diagnostic tests and/or laboratory data RESULTS Radiology Results [id number]:21:00 HAND XRAY - 3 VIEW PACs Image DATE OF EXAM: Jul 02 2015 RAD 0730-HAND XRAY-3 VIEW- LEFT: RADIOLOGY REPORT DATE OF SERVICE:07/02/15 HISTORY:Patient has follow-up fracture of the left hand. LEFT HAND 3 VIEWS 1535 HOURS There is fracture of the distal second metacarpal unchanged from 06/24/15. No healing response is seen.There is mild convex posterior angulation unchanged.The remaining bony structures and joints are normal. IMPRESSION:No change in fracture of the distal second metacarpal. Genoveva Sagastume DO MW/pb 07/02/2015 15:56:00 / 07/02/2015 17:19:27 cc:Mickie Mcintyre PA-C This document has been electronically Signed by: On: DATE OF EXAM: Jul 02 2015 RAD 0730-HAND XRAY-3 VIEW- LEFT: RADIOLOGY REPORT DATE OF SERVICE:07/02/15 HISTORY:Patient has follow-up fracture of the left hand. LEFT HAND 3 VIEWS 1535 HOURS There is fracture of the distal second metacarpal unchanged from 06/24/15. No healing response is seen.There is mild convex posterior angulation unchanged.The remaining bony structures and joints are normal. IMPRESSION:No change in fracture of the distal second metacarpal. Genoveva Sagastume DO MW/pb 07/02/2015 15:56:00 / 07/02/2015 17:19:27 cc:Mickie Mcintyre PA-C This document has been electronically Signed by: GENOVEVA SAGASTUME DO On: Jul 03 20154:21P Result Amended on 2015 at 16:21:58. Previous status was AK. History of procedures Procedure Code Code Type Description Date Performed Performing Physician 38206 CPT-4 X-RAY EXAM OF HAND 07-02-2015 MICKIE MCINTYRE Functional status No functional or cognitive status [...]
--- OUTSIDE RECORDS SUMMARY | 2017-11-15 04:55 | XMS REPORT | Clinical Summary ---
Author Author Admin, JULIO Son [facility] Address Unknown Phone Unavailable Allergies, Adverse [...] q 6 hrs PRN pain TRAMADOL HCL 03346340723 No Longer Active Jose David Palmer MD Active BACTRIM DS 800-160 MG TABS 1 PO bid x 10 days SULFAMETHOXAZOLE-TRIMETHOPRIM 48359706007 No Longer Active Jose David Palmer MD Active VENTOLIN HFA 108 (90 BASE) MCG/ACT AERS 2 puffs four times a day PRN ALBUTEROL SULFATE 73359202427 Active Gisela Bass APRN Active ZITHROMAX 250 MG TAB 2 po today, then 1 po q days 2-5 AZITHROMYCIN 25736989950 No Longer Active Gisela Bass APRN Active ZITHROMAX 250 MG TAB 2 po today, then 1 po q days 2-5 AZITHROMYCIN 20303884405 No Longer Active Savage Harrison MD Active BACTRIM DS 800-160 MG TABS 1 PO bid x 10 days BACTRIM DS 800-160 MG TABS SULFAMETHOXAZOLE-TRIMETHOPRIM Inactive TRAMADOL HCL 50 MG TABS 2 tabs PO q 6 hrs PRN pain TRAMADOL HCL 50 MG TABS 574498 TRAMADOL HCL Inactive ZITHROMAX 250 MG TAB 2 po today, then 1 po q days 2-5 ZITHROMAX 250 MG TAB 3798109 AZITHROMYCIN Inactive ZITHROMAX 250 MG TAB 2 po today, then 1 po q days 2-5 ZITHROMAX 250 MG TAB 0694928 AZITHROMYCIN Inactive Advance Directives Directive Description Start Date PERMISSION TO SHARE Immunizations Vaccine Administration Date Value Standard Description Boostrix (Tetanus toxoid, reduced diphtheria toxoid and acellular pertussis vaccine, adsorbed), booster Boostrix [[id number]] tetanus toxoid, reduced diphtheria toxoid, and acellular [...] Measured Encounters Code Encounter Date Provider Facility CPT-79134 Level 3 Est. Patient 16:33:42 CDT Jose David Palmer MD [facility] CPT-91420 Level 3 Est. Patient 15:59:53 CDT Skyler FRENCH [facility] CPT-82759 Level 3 Est. Patient 16:27:29 CDT Gisela Bass APRN [facility] CPT-49142 Level 3 Est. Patient 17:36:57 CDT Savage Harrison MD [facility] CPT-95930 Level 2 Est. Patient 12:39:59 CDT Jose David Palmer MD [facility] CPT-96544 Level 3 Est. Patient 19:50:05 CDT Jose David Palmer MD [facility] Procedures Code Procedure Name Date Entry Date Standard Description CPT-96409 Nail Excision 17:28:40 CDT CPT-18671 Nail Excision 12:39:59 CDT CPT-81348 Administration single or combination vaccine inc oral 21 :01:45 SLAT BASKET MAKER HELPER MACHINE CPT-21489 Tdap 21:01:45 SLAT BASKET MAKER HELPER MACHINE CPT-98077 Nail Avulsion 12:16:22 SLAT BASKET MAKER HELPER MACHINE
--- OUTSIDE RECORDS SUMMARY | 2017-11-15 04:55 | XMS REPORT | Referral Summary ---
Author Author [facility] Organization [facility] Address Unknown Phone Unavailable Encounter VC DICKINSON [id number] Date(s): 06/11/15 - 06/11/[address] [facility] [address] [facility] [address] [place] [address] [place] Discharge Diagnosis: Neck pain Discharge Diagnosis: Left facial numbness Discharge Disposition: 01-Home or Self Care Attending Physician: Germán Levine MD Admitting Physician: Germán Levine MD Vital Signs Most recent to 1 oldest [Reference Range]: Peripheral Pulse 76 bpm Rate [60-100 bpm] (06/11/15 10:58 AM) Blood Pressure 114/78 mmHg [90-140/60-90 mmHg] (06/11/15 10:58 AM) Problem List No data available for this section Allergies, Adverse Reactions, Alerts No Known Allergies Medications topiramate 25 mg oral tablet 50 mg 2 tabs, Oral, BID, pt to titrate up & take 25mg qam & 50mg qpm for 1 week then 50mg BID, # 120 tabs, 11 Refill(s), [facility] 2 tabs Oral BID,Instr:pt to titrate up & take 25mg qam & 50mg qpm for 1 week then 50mg BID Start Date: 08/02/15 Status: Ordered Results No data available for this section Immunizations No data available for this section Procedures No data available for this section Social History Social History Type Response Smoking Status Never smoker Assessment and Plan Extracted from: Title: Office Visit Note Author: Germán Levine MD Date: 06/11/15 Assessment/Plan Left facial numbness 19 yo male with 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 Examination was remarkable for palpable lump on L temporal area, decreased sensation in inferior half of L face, L occipital region and L posterior neck. The area of numbnessgoes beyondfor what is expected on a single nerve lesion since it also involves the occipital and posterior neck that is supplied by cervical roots. I will do an MRI brain w and w/o and MRI C-spine w/o. If Imaging is unremarkable, I suspect his headaches are probably secondary to neck pain or L temporal lesion +/- a migraine component. Will Start Naproxen 500 mg bid for 2 weeks for pain control. Will consider neck PT if MRI is unrevealing. Patient recommended to take medication with meals and maintain himself well hydrated. If MRI brain and C-spine are unrevealing, I will defer further management of soft tissue mass to general surgery. Ordered: MRI Brain w/ + w/o Contrast Neck pain Ordered: Basic Metabolic Panel MRI Spine Cervical w/o Contrast Orders: naproxen, 500 mg 1 tabs, Oral, BID, # 28 tabs, 0 Refill(s)
--- OUTSIDE RECORDS SUMMARY | 2017-11-15 04:55 | XMS REPORT ---
Author Author [facility] [employer] [facility] Medical Staff Organization [facility] Address [address], [place] [address] Phone [phone] Care Team Providers Care Observer Helper Name Role Phone KARON MCLEAN MD PP [phone] Summary purpose TRANSITION OF CARE AUTO GENERATION [...] tests and/or laboratory data RESULTS Radiology Results [id number]:54:00 HAND XRAY - 3 VIEW PACs Image DATE OF EXAM: 2014 RAD 0730-HAND XRAY-3 VIEW- LEFT: RADIOLOGY REPORT DATE OF SERVICE: 06/24/2015 HISTORY:Followup of hand injury earlier this week. LEFT HAND 3 VIEWS: 0026 HOURS There is a slightly comminuted fracture of the distal neck of the second metacarpal extending into the second metacarpal head. There is slight anterior angulation of the metacarpal head. The remaining osseous structures are intact. IMPRESSION:Distal second metacarpal fracture with slight anterior angulation as above. Jesus Norman MD MWBello/jt06/24/2015 09:41:00 / 06/24/2015 17:57:51 cc:Dr Mclean This document has been electronically Signed by: On: DATE OF EXAM: 2014 RAD 0730-HAND XRAY-3 VIEW- LEFT: RADIOLOGY REPORT DATE OF SERVICE: 06/24/2015 HISTORY:Followup of hand injury earlier this week. LEFT HAND 3 VIEWS: 0026 HOURS There is a slightly comminuted fracture of the distal neck of the second metacarpal extending into the second metacarpal head. There is slight anterior angulation of the metacarpal head. The remaining osseous structures are intact. IMPRESSION:Distal second metacarpal fracture with slight anterior angulation as above. Jesus Norman MD MWD/jt06/24/2015 09:41:00 / 06/24/2015 17:57:51 cc:Dr Mclean This document has been electronically Signed by: JESUS NORMAN On: 20141:54P Result Amended on 2015-06-25 at 13:54:28. Previous status was SD. History of procedures No procedures recorded for this patient visit. Functional status Functional Status Finding Observation Time Diet regular :19 Abdomen Appearance flat :19 Abdomen soft :19 Bowel Sounds present :19 Urination normal :19 Quality sym/unlabored :19 Cough absent :19 Breath Sounds RUL clear :19 Breath Sounds RML clear :19 Breath Sounds RLL clear :19 Breath Sounds GELY clear :19 Breath Sounds LLL clear :19 Chest Tube no :19 Oxygen no :48 Temp >100.4 no :19 Temp <96.8 no :19 Chills with rigors no :19 HR > 90bpm no :19 Respirations > 20 no :19 Systolic <90 no :19 Rapid Resp no :19 Nursing Note Dismissed home per Dr Whitaker. Discharge instructions given and understood by pt who verbalized understanding. Ambulated to exit in stable conditon. 06-24-2015 01:48 Vital signs Type Value Date Respiration Rate 18breaths per minute 27-74-849890:48 Pulse 68beats per minute 05-93-986371:48 Oxygen Saturation 100% 48-12-544915:48 BP Systolic 122mmHg 16-30-084289:48 BP Diastolic 66mmHg 56-14-912206:48 Temperature 98.6F 05-98-267908:48 Height 69inches 81-04-647222:10 Weight 195LB 05-18-898140:10 Social history Type Value Smoking Status NEVER SMOKER Treatment Plan No treatment plan text is available for this visit. Hospital discharge instructions Dismissal Condition good Disposition on DC home DC Inst/Educ Give yes Med/Side Effects Rev yes Flu Vac none
--- OUTSIDE RECORDS SUMMARY | 2017-11-15 04:55 | XMS REPORT ---
Author Author [facility] Medical [facility] Organization [facility] Address [address] [place] [address] Phone [phone] Care Team Providers Care Oracle Database Administrator Name Role Phone KARON MCLEAN MD PP [phone] Summary purpose TRANSITION OF CARE AUTO GENERATION [...]
--- OUTSIDE RECORDS SUMMARY | 2017-11-15 04:56 | XMS REPORT | Clinical Summary ---
Author Author Admin, JULIO Organization [facility] Address Unknown Phone Unavailable Allergies, Adverse [...] q 6 hrs PRN pain TRAMADOL HCL 48863741075 No Longer Active Jose David Palmer MD Active BACTRIM DS 800-160 MG TABS 1 PO bid x 10 days SULFAMETHOXAZOLE-TRIMETHOPRIM 75814124342 No Longer Active Jose David Palmer MD Active VENTOLIN HFA 108 (90 BASE) MCG/ACT AERS 2 puffs four times a day PRN ALBUTEROL SULFATE 17460948220 Active Jose David Palmer MD Active ZITHROMAX 250 MG TAB 2 po today, then 1 po q days 2-5 AZITHROMYCIN 61638308686 No Longer Active Gisela Bass APRN Active ZITHROMAX 250 MG TAB 2 po today, then 1 po q days 2-5 AZITHROMYCIN 06959177888 No Longer Active Savage Harrison MD Active BACTRIM DS 800-160 MG TABS 1 PO bid x 10 days BACTRIM DS 800-160 MG TABS SULFAMETHOXAZOLE-TRIMETHOPRIM Inactive TRAMADOL HCL 50 MG TABS 2 tabs PO q 6 hrs PRN pain TRAMADOL HCL 50 MG TABS 898130 TRAMADOL HCL Inactive ZITHROMAX 250 MG TAB 2 po today, then 1 po q days 2-5 ZITHROMAX 250 MG TAB 4571753 AZITHROMYCIN Inactive ZITHROMAX 250 MG TAB 2 po today, then 1 po q days 2-5 ZITHROMAX 250 MG TAB 8798254 AZITHROMYCIN Inactive Advance Directives Directive Description Start Date PERMISSION TO SHARE Immunizations Vaccine Administration Date Value Standard Description Boostrix (Tetanus toxoid, reduced diphtheria toxoid and acellular pertussis vaccine, adsorbed), booster Boostrix [[id number]] tetanus toxoid, reduced diphtheria toxoid, and acellular [...] E&M - 3141-9 195.4 [lb_av] Weight Measured Encounters Code Encounter Date Provider Facility CPT-90382 Level 3 Est. Patient 16:33:42 CDT Jose David Palmer MD [facility] CPT-95115 Level 3 Est. Patient 15:59:53 CDT Skyler FRENCH [facility] CPT-68449 Level 3 Est. Patient 16:27:29 CDT Gisela Bass APRN [facility] CPT-73679 Level 3 Est. Patient 17:36:57 CDT Savage Harrison MD [facility] CPT-82914 Level 2 Est. Patient 12:39:59 CDT Jose David Palmer MD [facility] CPT-74853 Level 3 Est. Patient 19:50:05 CDT Jose David Palmer MD [facility] Procedures Code Procedure Name Date Entry Date Standard Description CPT-OV Office Visit 16:13:25 CDT CPT-73510 Nail Excision 17:28:40 CDT CPT-08034 Nail Excision 12:39:59 CDT CPT-72807 Administration single or combination vaccine inc oral 21 :01:45 DIABETES SOLUTIONS SPECIALIST CPT-55747 Tdap 21:01:45 DIABETES SOLUTIONS SPECIALIST CPT-57132 Nail Avulsion 12:16:22 DIABETES SOLUTIONS SPECIALIST
--- OUTSIDE RECORDS SUMMARY | 2017-11-15 04:56 | XMS REPORT | Clinical Summary ---
Author Author Admin, JULIO Organization [employer] Address Unknown Phone Unavailable Allergies, Adverse Reactions, [...] MD INGROWN TOENAIL ICD-703.0 Inactive Gisela Bass PRE CODER PHARYNGITIS-ACUTE ICD-462 Inactive Gisela Bass PRE CODER ACUTE BRONCHITIS ICD-466.0 Inactive Jose David Palmer MD WHEEZING ICD-786.07 Inactive Jose David Palmer MD Medication List Medication Instructions Start Date Stop Date Generic Name NDC Status Provider Patient Instruction ALPRAZOLAM 0.25 MG TABS 1/2 to 1 twice a day as needed for anxiety ALPRAZOLAM 33555802810 Active Jose David Palmer MD Active PAROXETINE HCL 20 MG TABS 1 daily for depression/anxiety PAROXETINE HCL 58400324656 Active Jose David Palmer MD Active TRAMADOL HCL 50 MG TABS 2 tabs PO q 6 hrs PRN pain TRAMADOL HCL 31680815492 No Longer Active Jose David Palmer MD Active BACTRIM DS 800-160 MG TABS 1 PO bid x 10 days SULFAMETHOXAZOLE-TRIMETHOPRIM 46204753945 No Longer Active Jose David Palmer MD Active VENTOLIN HFA 108 (90 BASE) MCG/ACT AERS 2 puffs four times a day PRN ALBUTEROL SULFATE 51549455515 Active Jose David Palmer MD Active ZITHROMAX 250 MG TAB 2 po today, then 1 po q days 2-5 AZITHROMYCIN 38345186700 No Longer Active Gisela Bass PRE CODER Active ZITHROMAX 250 MG TAB 2 po today, then 1 po q days 2-5 AZITHROMYCIN 66806376833 No Longer Active Savage Harrison MD Active BACTRIM DS 800-160 MG TABS 1 PO bid x 10 days BACTRIM DS 800-160 MG TABS 643221 SULFAMETHOXAZOLE-TRIMETHOPRIM Inactive TRAMADOL HCL 50 MG TABS 2 tabs PO q 6 hrs PRN pain TRAMADOL HCL 50 MG TABS 236075 TRAMADOL HCL Inactive ZITHROMAX 250 MG TAB 2 po today, then 1 po q days 2-5 ZITHROMAX 250 MG TAB 9559621 AZITHROMYCIN Inactive ZITHROMAX 250 MG TAB 2 po today, then 1 po q days 2-5 ZITHROMAX 250 MG TAB 8706305 AZITHROMYCIN Inactive Advance Directives Directive Description Start Date PERMISSION TO SHARE Immunizations Vaccine Administration Date Value Standard Description Boostrix (Tetanus toxoid, reduced diphtheria toxoid and acellular pertussis vaccine, adsorbed), booster Boostrix [[id number]] tetanus toxoid, reduced diphtheria toxoid, and acellular [...] Measured Encounters Code Encounter Date Provider Facility CPT-94990 Level 4 Est. Patient 10:40:46 CDT Jose David Palmer MD [facility] CPT-14806 Level 3 Est. Patient 16:33:42 CDT Jose David Palmer MD [facility] CPT-54825 Level 3 Est. Patient 15:59:53 CDT Skyler FRENCH [facility] CPT-21338 Level 3 Est. Patient 16:27:29 CDT Gisela Bass APRN [facility] CPT-23264 Level 3 Est. Patient 17:36:57 CDT Savage Harrison MD [facility] CPT-06402 Level 2 Est. Patient 12:39:59 CDT Jose David Palmer MD [facility] CPT-08939 Level 3 Est. Patient 19:50:05 CDT Jose David Palmer MD [facility] Procedures Code Procedure Name Date Entry Date Standard Description CPT-OV Office Visit 16:13:25 CDT CPT-78733 Nail Excision 17:28:40 CDT CPT-26095 Nail Excision 12:39:59 CDT CPT-75317 Administration single or combination vaccine inc oral 21 :01:45 ABLE BODIED WATCHMAN CPT-92592 Tdap 21:01:45 ABLE BODIED WATCHMAN CPT-59496 Nail Avulsion 12:16:22 ABLE BODIED WATCHMAN
--- OUTSIDE RECORDS SUMMARY | 2017-11-15 04:56 | XMS REPORT ---
Author Author [facility] [employer] [facility] Medical Staff Organization [facility] [employer] [facility] Address [address], [place] [address] Phone [phone] Care Team Providers Care Administrative Support Associate Name Role Phone KARON MCLEAN MD PP [phone] Summary purpose TRANSITION OF CARE AUTO GENERATION [...] tests and/or laboratory data RESULTS Radiology Results [id number]:33:00 HAND XRAY - 3 VIEW PACs Image [...] document has been electronically Signed by: On: History of procedures No procedures recorded for this patient visit. Functional status Functional Status Finding Observation Time Diet regular :19 Abdomen Appearance flat 18-83-078181:19 Abdomen soft :19 Bowel Sounds present 41-26-501149:19 Urination normal :19 Quality sym/unlabored :19 Cough absent :19 Breath Sounds RUL clear :19 Breath Sounds RML clear :19 Breath Sounds RLL clear :19 Breath Sounds GELY clear :19 Breath Sounds LLL clear :19 Chest Tube no :19 Oxygen no :48 Temp >100.4 no :19 Temp <96.8 no :19 Chills with rigors no : HR > 90bpm no :19 Respirations > 20 no :19 Systolic <90 no :19 Rapid Resp no :19 Nursing Note Dismissed home per Dr Whitaker. Discharge instructions given and understood by pt who verbalized understanding. Ambulated to exit in stable conditon. 06-24-2015 01:48 Vital signs Type Value Date Respiration Rate 18breaths per minute :48 Pulse 68beats per minute :48 Oxygen Saturation 100% :48 BP Systolic 122mmHg 46-22-250288:48 BP Diastolic 66mmHg 93-04-170075:48 Temperature 98.6F 66-36-600842:48 Height 69inches :10 Weight 195LB 86-63-264700:10 Social history Type Value Smoking Status NEVER SMOKER Treatment Plan No treatment plan text is available for this visit. Hospital discharge instructions Dismissal Condition good Disposition on DC home DC Inst/Educ Give yes Med/Side Effects Rev yes Flu Vac none
--- OUTSIDE RECORDS SUMMARY | 2017-11-15 04:56 | XMS REPORT | Clinical Summary ---
Author Author Admin, JULIO Organization [employer] Address Unknown Phone Unavailable Allergies, Adverse Reactions, [...] LEFT ICD-840.9 Inactive Jose David Palmer MD PHARYNGITIS-ACUTE ICD-462 Inactive Gisela Bass CLINICAL RESOURCE DIRECTOR ACUTE BRONCHITIS ICD-466.0 Inactive Jose David Palmer MD WHEEZING ICD-786.07 Inactive Jose David Palmer MD INGROWN TOENAIL ICD-703.0 Inactive Gisela Bass CLINICAL RESOURCE DIRECTOR Medication List Medication Instructions Start Date Stop Date Generic Name NDC Status Provider Patient Instruction ALPRAZOLAM 0.25 MG TABS 1/2 to 1 twice a day as needed for anxiety ALPRAZOLAM 86934709415 Active Jose David Palmer MD Active PAROXETINE HCL 20 MG TABS 1 daily for depression/anxiety PAROXETINE HCL 83213707759 Active Jose David Palmer MD Active TRAMADOL HCL 50 MG TABS 2 tabs PO q 6 hrs PRN pain TRAMADOL HCL 66631455069 No Longer Active Jose David Palmer MD Active BACTRIM DS 800-160 MG TABS 1 PO bid x 10 days SULFAMETHOXAZOLE-TRIMETHOPRIM 02160697405 No Longer Active Jose David Palmer MD Active VENTOLIN HFA 108 (90 BASE) MCG/ACT AERS 2 puffs four times a day PRN ALBUTEROL SULFATE 29180324666 Active Jose David Palmer MD Active ZITHROMAX 250 MG TAB 2 po today, then 1 po q days 2-5 AZITHROMYCIN 45710500011 No Longer Active Gisela Bass CLINICAL RESOURCE DIRECTOR Active ZITHROMAX 250 MG TAB 2 po today, then 1 po q days 2-5 AZITHROMYCIN 99064113176 No Longer Active Savage Harrison MD Active BACTRIM DS 800-160 MG TABS 1 PO bid x 10 days BACTRIM DS 800-160 MG TABS 627964 SULFAMETHOXAZOLE-TRIMETHOPRIM Inactive TRAMADOL HCL 50 MG TABS 2 tabs PO q 6 hrs PRN pain TRAMADOL HCL 50 MG TABS 379864 TRAMADOL HCL Inactive ZITHROMAX 250 MG TAB 2 po today, then 1 po q days 2-5 ZITHROMAX 250 MG TAB 4714539 AZITHROMYCIN Inactive ZITHROMAX 250 MG TAB 2 po today, then 1 po q days 2-5 ZITHROMAX 250 MG TAB 7447585 AZITHROMYCIN Inactive Advance Directives Directive Description Start Date PERMISSION TO SHARE Immunizations Vaccine Administration Date Value Standard Description Boostrix (Tetanus toxoid, reduced diphtheria toxoid and acellular pertussis vaccine, adsorbed), booster Boostrix [[id number]] tetanus toxoid, reduced diphtheria toxoid, and acellular [...] Measured Encounters Code Encounter Date Provider Facility CPT-10487 Level 4 Est. Patient 10:40:46 CDT Jose David Palmer MD [facility] CPT-63237 Level 3 Est. Patient 16:33:42 CDT Jose David Palmer MD [facility] CPT-95432 Level 3 Est. Patient 15:59:53 CDT Skyler FRENCH [facility] CPT-39746 Level 3 Est. Patient 16:27:29 CDT Gisela Bass APRN [facility] CPT-70112 Level 3 Est. Patient 17:36:57 CDT Savage Harrison MD [facility] CPT-72620 Level 2 Est. Patient 12:39:59 CDT Jose David Palmer MD [facility] CPT-06758 Level 3 Est. Patient 19:50:05 CDT Jose David Palmer MD [facility] Procedures Code Procedure Name Date Entry Date Standard Description CPT-OV Office Visit 16:13:25 CDT CPT-95043 Nail Excision 17:28:40 CDT CPT-49969 Nail Excision 12:39:59 CDT CPT-32703 Administration single or combination vaccine inc oral 21 :01:45 PIPELINE DISPATCHER CPT-77355 Tdap 21:01:45 PIPELINE DISPATCHER CPT-27297 Nail Avulsion 12:16:22 PIPELINE DISPATCHER
--- OUTSIDE RECORDS SUMMARY | 2017-11-15 04:56 | XMS REPORT | Clinical Summary ---
Author Author Admin, JULIO Organization [employer] Address Unknown Phone Unavailable Allergies, Adverse Reactions, Alerts Allergy Name Reaction Description Start Date Severity Status Provider NKDA Critical No Longer Active Jose David Palmer MD WHEAT Shortness of Breath Moderate Active Jose David Palmer MD NKDA Critical Inactive Zohra Buck Conditions or Problems Problem Name Problem Code [...] q 6 hrs PRN pain TRAMADOL HCL 84838807297 No Longer Active Jose David Palmer MD Active BACTRIM DS 800-160 MG TABS 1 PO bid x 10 days SULFAMETHOXAZOLE-TRIMETHOPRIM 96900469088 No Longer Active Jose David Palmer MD Active VENTOLIN HFA 108 (90 BASE) MCG/ACT AERS 2 puffs four times a day PRN ALBUTEROL SULFATE 29188733114 Active Jose David Palmer MD Active ZITHROMAX 250 MG TAB 2 po today, then 1 po q days 2-5 AZITHROMYCIN 21855241276 No Longer Active Gisela Bass APRN Active ZITHROMAX 250 MG TAB 2 po today, then 1 po q days 2-5 AZITHROMYCIN 48312106771 No Longer Active Savage Harrison MD Active BACTRIM DS 800-160 MG TABS 1 PO bid x 10 days BACTRIM DS 800-160 MG TABS 757427 SULFAMETHOXAZOLE-TRIMETHOPRIM Inactive TRAMADOL HCL 50 MG TABS 2 tabs PO q 6 hrs PRN pain TRAMADOL HCL 50 MG TABS 079868 TRAMADOL HCL Inactive ZITHROMAX 250 MG TAB 2 po today, then 1 po q days 2-5 ZITHROMAX 250 MG TAB 8969575 AZITHROMYCIN Inactive ZITHROMAX 250 MG TAB 2 po today, then 1 po q days 2-5 ZITHROMAX 250 MG TAB 2742162 AZITHROMYCIN Inactive Advance Directives Directive Description Start Date PERMISSION TO SHARE Immunizations Vaccine Administration Date Value Standard Description Boostrix (Tetanus toxoid, reduced diphtheria toxoid and acellular pertussis vaccine, adsorbed), booster Boostrix [[id number]] tetanus toxoid, reduced diphtheria toxoid, and acellular [...] given Historical hepatitis B vaccine, unspecified formulation Encounters Code Encounter Date Provider Facility CPT-83949 Level 3 Est. Patient 16:33:42 CDT Jose David Palmer MD [facility] CPT-26701 Level 3 Est. Patient 15:59:53 CDT Skyler FRENCH [facility] CPT-31829 Level 3 Est. Patient 16:27:29 CDT Gisela Bass APRN [facility] CPT-72797 Level 3 Est. Patient 17:36:57 CDT Savage Harrison MD [facility] CPT-79622 Level 2 Est. Patient 12:39:59 CDT Jose David Palmer MD [facility] CPT-14573 Level 3 Est. Patient 19:50:05 CDT Jose David Palmer MD [facility] Procedures Code Procedure Name Date Entry Date Standard Description CPT-OV Office Visit 16:13:25 CDT CPT-57978 Nail Excision 17:28:40 CDT CPT-74022 Nail Excision 12:39:59 CDT CPT-67233 Administration single or combination vaccine inc oral 21 :01:45 OUTSOLE ROUNDER CPT-08616 Tdap 21:01:45 OUTSOLE ROUNDER CPT-70005 Nail Avulsion 12:16:22 OUTSOLE ROUNDER
--- OUTSIDE RECORDS SUMMARY | 2017-11-15 04:56 | XMS REPORT ---
Author Author [facility] [employer] [facility] Medical Staff Organization [facility] Address [address], [place] [address] Phone [phone] Care Team Providers Care Activities Volunteer Name Role Phone KARON MCLEAN MD PP [phone] Summary purpose TRANSITION OF CARE AUTO GENERATION [...] tests and/or laboratory data RESULTS Radiology Results [id number]:29:00 MRI BRAIN W/WO CONT PACs Image DATE OF EXAM: 2015 MRI 0036-MRI BRAIN W/WO CONTRAST : RADIOLOGY REPORT DATE OF SERVICE:04/25/16 HISTORY:Headaches, history of an intracranial cyst noted on prior outside MRI. PRE AND POSTCONTRAST MRI OF THE BRAIN:0835 HOURS Cranial imaging was performed in the sagittal, axial, and coronal planes. 15 mL Magnevist was administered for enhancement. Prior outside studies are not currently available for comparison. There is a round CSF collection anteriorly in the left middle cranial fossa. This produces mild mass effect on the left temporal lobe. The left middle cerebral artery and its major branches are displaced superiorly over the cephalic aspect of the mass. The veins of the middle cranial fossa are along the anterior border of the mass. Within the mass, no solid components or significant enhancement is seen. The mass measures 4.9 cm transverse, 4.4 cm AP, and 4.3 cm cephalocaudal. The ventricles are normal in size. There are no solid intracranial masses. There is no hemorrhage or infarction. There is no demyelinating disease. The 7th and 8th nerve complexes are normal. The bony calvarium appears normal. 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 Moderate mass effect noted. If prior outside studies can be obtained they would be helpful to determine if this is an enlarging origin is stable from prior studies. MD VANESSA Roa/jt04/26/2016 08:25: / 04/26/2016 11:10:10 cc:Dr. Karon Mclean This document has been electronically Signed by: On: DATE OF EXAM: 2015 MRI 6-MRI BRAIN W/WO CONTRAST : RADIOLOGY REPORT CORRECTED REPORT DATE OF SERVICE:04/25/16 HISTORY:Headaches, history of an intracranial cyst noted on prior outside MRI. PRE AND POSTCONTRAST MRI OF THE BRAIN:0835 HOURS Cranial imaging was performed in the sagittal, axial, and coronal planes. 15 mL Magnevist was administered for enhancement. Prior outside studies are not currently available for comparison. There is a round CSF collection anteriorly in the left middle cranial fossa. This produces mild mass effect on the left temporal lobe. The left middle cerebral artery and its major branches are displaced superiorly over the cephalic aspect of the mass. The veins of the middle cranial fossa are along the anterior border of the mass. Within the mass, no solid components or significant enhancement is seen. The mass measures 4.9 cm transverse, 4.4 cm AP, and 4.3 cm cephalocaudal. The ventricles are normal in size. There are no solid intracranial masses. There is no hemorrhage or infarction. There is no demyelinating disease. The 7th and 8th nerve complexes are normal. The bony calvarium appears normal. IMPRESSION:Arachnoid cyst in the left middle cranial fossa. Moderate mass effect noted. If prior outside studies can be obtained they would be helpful to determine if this is enlarging or is stable from prior studies. MD VANESSA Roa/jt04/26/2016 08:25:04/26/2016 11:10:10 cc:Dr. Karon Mclean This document has been electronically Signed by: On: DATE OF EXAM: 2015 MRI 35-MRI BRAIN W/WO CONTRAST : RADIOLOGY REPORT CORRECTED REPORT DATE OF SERVICE:04/25/16 HISTORY:Headaches, history of an intracranial cyst noted on prior outside MRI. PRE AND POSTCONTRAST MRI OF THE BRAIN:0835 HOURS Cranial imaging was performed in the sagittal, axial, and coronal planes. 15 mL Magnevist was administered for enhancement. Prior outside studies are not currently available for comparison. There is a round CSF collection anteriorly in the left middle cranial fossa. This produces mild mass effect on the left temporal lobe. The left middle cerebral artery and its major branches are displaced superiorly over the cephalic aspect of the mass. The veins of the middle cranial fossa are along the anterior border of the mass. Within the mass, no solid components or significant enhancement is seen. The mass measures 4.9 cm transverse, 4.4 cm AP, and 4.3 cm cephalocaudal. The ventricles are normal in size. There are no solid intracranial masses. There is no hemorrhage or infarction. There is no demyelinating disease. The 7th and 8th nerve complexes are normal. The bony calvarium appears normal. IMPRESSION:Arachnoid cyst in the left middle cranial fossa. Moderate mass effect noted. If prior outside studies can be obtained they would be helpful to determine if this is enlarging or is stable from prior studies. Jesus Norman MD MWD/jt04/26/2016 08:25:00 / 04/26/2016 11:10:10 cc:Dr. Karon Mclean This document has been electronically Signed by: JESUS NORMAN MD On: Apr 28 20164:29P Result Amended on 2016-04-28 at 09:41:58. Previous status was CA. Result Amended on 2016-04-28 at 16:29:56. Previous status was CA. History of procedures Procedure Code Code Type Description Date Performed Performing Physician [id number] CPT-4 MRI BRAIN W/O & W/DYE 04-25-2016 KARON MCLEAN [id number] CPT-4 HUSEYIN-BASE MR CONTRAST NOS,1ML 04-25-2016 KARON MCLEAN Functional status No functional or cognitive status [...]
--- OUTSIDE RECORDS SUMMARY | 2017-11-15 04:57 | XMS REPORT | Continuity of Care Document ---
Author Author [facility] Organization [facility] Address Unknown Phone Unavailable Allergies Active Description Code Type Severity Reaction Onset Reported/Identified Relationship to Patient Clinical Status Yes No known drug allergies 25899154 ND N/A N/A Yes No Known Allergies NKMA N/A N/A 06/11/2015 Medications There is no data. Problems Date Dx Coded Attending Type Code Diagnosis Diagnosed By 04/12/2015 KANDICE MONROY 466.0 ACUTE BRONCHITIS 04/12/2015 KANDICE MONROY 477.9 ALLERGIC RHINITIS NOS 04/12/2015 KANDICE MONROY 493.90 ASTHMA, UNSPECIFIED Procedures Code [place] [address] THER/PROPH/DIAG INJ, SC/IM KANDICE MONROY 04/12/2015 96848 OFFICE/OUTPATIENT VISIT, NEW KANDICE MONROY 04/12/2015 J2930 METHYLPREDNISOLONE INJECTION KANDICE MONROY 04/12/2015 36860 MRI BRAIN W/O & W/DYE 04/25/2016 A9579 HUSEYIN-BASE MR CONTRAST NOS, 1ML 04/25/2016 Results Test Result Range CBC WITH DIFF - 11/27/14 00:00 BASO% 0.6 % 0-2 EOS% 6.9 % 0-7.0 HCT 45.5 % 41.9-52.0 HGB 14.4 G/DL 13.0-18.0 LYMPH% 39.0 % 20-40 MCH 29.2 PG 27-31 MCHC 31.6 G/DL 33-37 MCV 92.3 FL 80-94 MONO% 9.7 % 0-10.0 MPV 9.4 FL 7.3-10.4 NEUTRO% 43.8 % 40-70 PLT 273 10^3u 130-400 RBC 4.9 10^6u 4.7-6.1 RDW 13.5 % 11.5-15.5 WBC 7.8 10^3u 4.8-10.8 NEUTRO# 3.4 10^3u 1.5-7.5 LYMPH# 3.0 10^3u 0.9-4.0 MONO# 0.8 10^3u 0-0.8 EOS# 0.5 10^3u 0-0.6 BASO# 0.1 10^3u 0-0.1 CMP - 11/27/14 00:00 ALB 4.2 G/DL 3.5-5 ALP 89 IU/L 51-203 ALT 36 IU/L 12-65 AST 33 IU/L 10-42 BCR 14.8 10-20 BUN 19 MG/DL 7-18 CA 9.3 MG/DL 8.4-10.2 CL 104 MEQ/L 98-107 CO2 29.6 MEQ/L 22-28 CREA 1.28 MG/DL 0.6-1.3 EGFR 73 eGFR >=60 GLU 98 MG/DL 70-105 K 4.0 MEQ/L 3.5-5.1 NA 142 MEQ/L 134-145 OSMSC 285.4 MOSML 280-300 TBIL 0.3 MG/DL 0.1-1.0 TP 7.4 G/DL 6.0-8.3 Albumin/Globulin Ratio 1.3 0-8 Anion Gap 8.4 8-16 CRP - 11/27/14 00:00 CRP < 0.2 MG/DL 0-1 SEDR - 11/27/14 00:00 SEDR 5 0-15 Encounters ACCT No. Visit Date/Time Discharge Status Pt. Type Provider Facility Loc./Unit Complaint [id number] 04/12/2015 08:33:00 04/12/2015 08:33:00 DIS Outpatient EMELIA FRENCH [facility] OTHER [id number] 06/11/2015 10:44:00 06/11/2015 23:59:00 DIS Outpatient Germán Levine [facility] N SF Neuro HEADACHES SOME NUMBNESS/ [facility] [id number] 04/25/2016 07:31:00 04/25/2016 07:31:00 DIS Outpatient KARON MCLEAN [facility] RAD [id number] 07/02/2015 15:18:00 07/02/2015 15:18:00 DIS Outpatient MICKIE MCINTYRE [facility] RAD [id number] 06/23/2015 23:53:00 06/24/2015 01:56:00 DIS Emergency KANDICE FIERRO [facility] EMR [id number] 03/24/2015 18:37:00 03/24/2015 19:13:00 DIS Emergency GENOVEVA BASS [facility] EMR [id number] 11/27/2014 02:28:00 11/27/2014 04:10:00 DIS Emergency GENOVEVA BASS [facility] EMR [id number] 09/17/2014 00:00:00 Document Registration [id number] 12/01/2016 08:14:00 ACT Unknown [id number] 12/09/2016 08:45:27 12/09/2016 23:59:59 CLS Outpatient ROD MICHAEL [facility] RAD xray [id number] 12/09/2016 08:29:21 12/09/2016 23:59:59 CLS Outpatient ROD MICHAEL [facility] [id number] 12/04/2016 08:29:42 12/04/2016 23:59:59 CLS Outpatient KARON MCLEAN [facility] [place]
--- OUTSIDE RECORDS SUMMARY | 2017-11-15 04:57 | XMS REPORT | Clinical Summary ---
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 Active Jose David [...] q 6 hrs PRN pain TRAMADOL HCL 44134424611 No Longer Active Jose David Palmer MD Active BACTRIM DS 800-160 MG TABS 1 PO bid x 10 days SULFAMETHOXAZOLE-TRIMETHOPRIM 74617570224 No Longer Active Jose David Palmer MD Active VENTOLIN HFA 108 (90 BASE) MCG/ACT AERS 2 puffs four times a day PRN ALBUTEROL SULFATE 06349561455 Active Gisela Bass APRN Active ZITHROMAX 250 MG TAB 2 po today, then 1 po q days 2-5 AZITHROMYCIN 17624290784 No Longer Active Gisela Bass APRN Active ZITHROMAX 250 MG TAB 2 po today, then 1 po q days 2-5 AZITHROMYCIN 96320172955 No Longer Active Savage Harrison MD Active BACTRIM DS 800-160 MG TABS 1 PO bid x 10 days BACTRIM DS 800-160 MG TABS SULFAMETHOXAZOLE-TRIMETHOPRIM Inactive TRAMADOL HCL 50 MG TABS 2 tabs PO q 6 hrs PRN pain TRAMADOL HCL 50 MG TABS 327212 TRAMADOL HCL Inactive ZITHROMAX 250 MG TAB 2 po today, then 1 po q days 2-5 ZITHROMAX 250 MG TAB 7639472 AZITHROMYCIN Inactive ZITHROMAX 250 MG TAB 2 po today, then 1 po q days 2-5 ZITHROMAX 250 MG TAB 0536256 AZITHROMYCIN Inactive Advance Directives Directive Description Start Date PERMISSION TO SHARE Immunizations Vaccine Administration Date Value Standard Description Boostrix (Tetanus toxoid, reduced diphtheria toxoid and acellular pertussis vaccine, adsorbed), booster Boostrix [[id number]] tetanus toxoid, reduced diphtheria toxoid, and acellular [...] Range Description blood pressure, diastolic - 8462-4 71 mm[Hg] [...] Measured Encounters Code Encounter Date Provider Facility CPT-57888 Level 3 Est. Patient 16:33:42 CDT Jose David Palmer MD [facility] CPT-62069 Level 3 Est. Patient 15:59:53 CDT Skyler FRENCH [facility] CPT-14261 Level 3 Est. Patient 16:27:29 CDT Gisela Bass APRN [facility] CPT-48531 Level 3 Est. Patient 17:36:57 CDT Savage Harrison MD [facility] CPT-73412 Level 2 Est. Patient 12:39:59 CDT Jose David Palmer MD [facility] CPT-34911 Level 3 Est. Patient 19:50:05 CDT Jose David Palmer MD [facility] Procedures Code Procedure Name Date Entry Date Standard Description CPT-OV Office Visit 16:13:25 CDT CPT-15301 Nail Excision 17:28:40 CDT CPT-54908 Nail Excision 12:39:59 CDT CPT-09384 Administration single or combination vaccine inc oral 21 :01:45 RECYCLE COORDINATOR CPT-66809 Tdap 21:01:45 RECYCLE COORDINATOR CPT-32443 Nail Avulsion 12:16:22 RECYCLE COORDINATOR
--- OUTSIDE RECORDS SUMMARY | 2017-11-15 04:57 | XMS REPORT ---
Author Author [facility] Organization [facility] Address [address] [id number] Phone [phone] Care Team Providers Care Protein Chemist Name Role Phone KARON MCLEAN MD PP [phone] Summary purpose TRANSITION OF CARE AUTO GENERATION [...] Functional Status Finding Observation Time Diet regular 84-20-108629:50 Abdomen Appearance flat :50 Abdomen soft :50 Bowel Sounds present 03-08-672862:50 Quality sym/unlabored :50 Cough absent :50 Breath Sounds RUL clear :50 Breath Sounds RML clear :50 Breath Sounds RLL clear 68-97-244850:50 Breath Sounds GELY clear :50 Breath Sounds LLL clear :50 Chest Tube no :50 Oxygen no :10 Temp >100.4 no :50 Temp <96.8 no :50 Chills with rigors no :50 HR > 90bpm no :50 Respirations > 20 no :50 Systolic <90 no 02-19-912420:50 Nursing Note dc inst discussed with pt.dcd to home with script in good condition :10 Vital signs Type Value Date Respiration Rate 16breaths per minute :10 Pulse 70beats per minute :10 Oxygen Saturation 100% :10 BP Systolic 118mmHg :10 BP Diastolic 55mmHg :10 Temperature 98.1F :10 Social history No Social History or smoking status observations were recorded for this visit. ( Unknown if ever smoked.) Treatment Plan No treatment plan text is available for this visit. Hospital discharge instructions Dismissal Condition good Disposition on DC home DC Inst/Educ Give yes Med/Side Effects Rev yes
== END 2017-11-11 14:30 | disposition home or self-care (01) ==
LOC: EDUNIT# 13:03 → ER 13:05
DX: R51 Headache (principal); H65.92 Unspecified nonsuppurative otitis media, left ear; D17.0 Benign lipomatous neoplasm of skin and subcutaneous tissue of head, face and neck
CPT/HCPCS: 87804; 96372; 99284